=== PATIENT | female | born 1995 | race Caucasian/White ===

== ENCOUNTER 2016-06-29 03:53 | Emergency (ER) | payer BC ==
[~2016-06-29] VITALS: Ht 165.1 cm; Wt 63.5 kg
[~2016-06-29 03:53] MED LIST: CITA20TA12 PO; CITA20TA4 PO; ZOLP10TA PO; ZOLP10TA5 PO
[2016-06-29] MEDS ORDERED: OSLT75C PO (04:24)
--- NOTE | 2016-06-29 04:24 | ED Cough/URI ---
General Chief Complaint: Cough/Cold/Flu Symptoms Stated Complaint: POSS SINUS INFECTION,RUNNY NOSE Nursing Triage Note: COUGH/RUNNY NOSE/ FEVER, GENERALIZED BODY ACHE Source: patient History of Present Illness Time seen by provider: 04:15 Initial Comments PT STATES SHE BEGAN FEELING ILL YESTERDAY AM C/O FEVER UP TO 102 C/O HEADACHE C/O BODY ACHES C/O COUGH AND CLEAR NASAL DRAINAGE NO CHEST PAIN OR SHORTNESS OF BREATH NO KNOWN SICK CONTACTS BUT PT WORKS IN A HAIR SALON NO RELIEF WITH BENADRYL 25 MG AND IBUPROFEN 400 MG X 1 DOSE EARLIER TONIGHT. PCP: FT. GHANSHYAM CIFUENTES Allergies and Home Medications Allergies Coded Allergies: Penicillins (Verified Allergy, Unknown, 12/12/14) Home Medications Oseltamivir Phosphate 75 Mg Cap #10 75 MG PO BID Prescribed by: SIVAN VEGA on 06/29/16 0424 Constitutional: see HPI chills fever malaise weakness EENTM: nose congestion other (CLEAR RHINORRHEA) see HPI Respiratory: see HPINo cough, No short of breath, No wheezing Cardiovascular: no symptoms reported Gastrointestinal: no symptoms reported Genitourinary: no symptoms reported Musculoskeletal: see HPI (BODY ACHES) Skin: no symptoms reportedNo rash Psychiatric/Neurological: See HPI HeadacheDenies Numbness, Denies Paresthesia , Denies Seizure, Denies Tingling, Denies Tremors, Denies Weakness Hematologic/Lymphatic: No Symptoms Reported Immunological/Allergic: no symptoms reported Past Vusgrep-Avdzmt-Igjdeu Hx Patient Social History Alcohol Use: Denies Use Recreational Drug Use: No Smoking Status: Former Smoker Type Used: Cigarettes Recent Foreign Travel: No Contact w/Someone Who Travel: No Recent Infectious Disease Expo: No Recent Hopitalizations: No Physical Abuse Screen: No Sexual Abuse: No Immunizations Up To Date Tetanus Booster (TDap): Unknown Seasonal Allergies Seasonal Allergies: Yes Surgeries HX Surgeries: Yes Surgeries: Adenoidectomy, Tonsillectomy Respiratory Hx Respiratory Disorders: No Cardiovascular Hx Cardiac Disorders: No Neurological Hx Neurological Disorders: No Reproductive System : No Hx Reproductive Disorders: No Sexually Transmitted Disease: No Female Reproductive Disorders: Denies Genitourinary Hx Genitourinary Disorders: No Gastrointestinal Hx Gastrointestinal Disorders: No Musculoskeletal Hx Musculoskeletal Disorders: No Endocrine Hx Endocrine Disorders: No HEENT HX ENT Disorders: No Cancer Hx Cancer: No Psychosocial Hx Psychiatric Problems: Yes Behavioral Health Disorders: Sleep Difficulties, Depression Integumentary HX Skin/Integumentary Disorder: No Blood Transfusions Hx Blood Disorders: No Family Medical History Family Medial History: Patient reports no known family medical history. Physical Exam Vital Signs Vital Sign - Last 12Hours 06/29/16 04:08 Temp 101.9 Pulse 108 Resp 18 B/P 108/72 Pulse Ox 95 O2 Delivery Room Air Capillary Refill : Less Than 3 Seconds General Appearance: WD/WN no apparent distress other (LOOKS MILDLY ILL) HEENT: PERRL/EOMI other (CONJUNCTIVA INJECTED BILATERALLY. MODERATE NASAL CONGESTION AND CLEAR RHINORRHEA) Neck: non-tender full range of motion supple normal inspection Respiratory: normal breath sounds no respiratory distress no accessory muscle use Cardiovascular: regular rate, rhythm no murmur Gastrointestinal: normal bowel sounds non tender soft no organomegaly Extremities: normal inspection no pedal edema no calf tenderness normal capillary refill Neurologic/Psychiatric: singer back tender II-XII nml as tested no motor/sensory deficits alert oriented x 3 Skin: normal color warm/dryNo rash Progress/Results/Core Measures Results/Orders Micro Results Microbiology 06/29/16 Influenza Types A,B Antigen (IRMA) - Final, Complete My Orders Orders-SIVAN VEGA DO Influenza A And B Antigens (06/29/16 04:13) Oseltamivir 75 Mg (10's) Caps (Tamiflu 7 (06/29/16 09:00) Vital Signs/I&O Vital Sign - Last 12Hours 06/29/16 06/29/16 06/29/16 04:08 04:08 04:40 Temp 101.9 101.9 Pulse 108 108 Resp 18 18 B/P 108/72 Pulse Ox 95 95 O2 Delivery Room Air Room Air Room Air Blood Pressure Mean: 84 Departure Impression Impression: Primary Impression: Influenza A Disposition: 01 HOME, SELF-CARE Condition: Stable Departure-Patient Inst. Referrals: KORINA TRACY MD (PCP) Primary Care Physician Patient Instructions: Flu, Adult (DC) Add. Discharge Instructions: LOTS OF CLEAR LIQUIDS TYLENOL 1 GRAM/ MOTRIN 800 MG 4 TIMES A DAY NEEDED FOR PAIN OR FEVER OVER THE COUNTER MEDICATION FOR COUGH AND CONGESTION FOLLOW UP WITH YOUR DR IN 4-5 DAYS IF NO BETTER All discharge instructions reviewed with patient and/or family. Voiced understanding. Scripts Oseltamivir Phosphate (Tamiflu)75 Mg Cap75 Mg PO BID #10 CAP Prov:SIVAN VEGA DO 06/29/16 Work/School Note: Work Release Form Date Seen in the Emergency Department: Jun 29, 2016 Return to Work: Jul 02, 2016 Restrictions: No Restrictions SIVAN VEGA DO Jun 29, 2016 04:24
[2016-06-29 04:40] VITALS: BP 108/72
[2016-06-29] MEDS ORDERED: OSELTAMIVIR 75 MG (TAMIFLU) BOX OF 10 PO SCH (09:00)
== END 2016-06-29 04:38 | disposition home or self-care (01) ==
LOC: EDUNIT# 03:53 → ER 03:56
DX: J09.X2 Influenza due to identified novel influenza A virus with other respiratory manifestations (principal)
CPT/HCPCS: 87804; 99283